=== PATIENT | male | born 1955 | race Asian ===

== ENCOUNTER 2016-08-28 21:31 | Emergency (ER) | payer MEDICARE ==
[~2016-08-28] VITALS: Ht 175.3 cm; Wt 75.0 kg
[2016-08-28 21:52] LABS: GLUCOSE,POINT OF CARE 133 MG/DL (70-110)
[2016-08-28] MEDS ORDERED: CARV6 PO (21:57)
[2016-08-28] MEDS ORDERED: ASPI81 PO (21:57)
[2016-08-28] MEDS ORDERED: METF500T4 PO (21:57)
[2016-08-28] MEDS ORDERED: ATOR40TA28 PO (21:57)
[2016-08-28 22:34] LABS: BASOPHILS % (AUTO) 0.6 % (0.0-2.0); HEMATOCRIT 39.4 % (41-53); HEMOGLOBIN 12.8 g/dL (13.5-17.5); LYMPHOCYTES # (AUTO) 3.8 K/uL (1.0-4.8); LYMPHOCYTES % (AUTO) 32.8 % (22.0-44.0); MEAN CORPUSCULAR HEMOGLOBIN 27.7 pg (26.0-34.0); MEAN CORPUSCULAR HGB CONC 32.4 G/dL (31.0-37.0); MEAN CORPUSCULAR VOLUME 85 fL (80-100); MONOCYTES % (AUTO) 8.4 % (2.0-9.0); NEUTROPHILS # (AUTO) 6.3 K/uL (1.8-7.7); NEUTROPHILS % (AUTO) 54.2 % (40.0-70.0); PLATELET COUNT (AUTO) 180 K/uL (150-450); RED BLOOD CELL COUNT(AUTO) 4.62 MIL/uL (4.50-5.90); RED CELL DISTRIBUTION WIDTH 14.9 % (11.5-14.5); WHITE BLOOD COUNT (AUTO) 11.6 K/uL (4.5-11.0)
[2016-08-28 22:47] LABS: PROTHROMBIN TIME 10.3 SEC (9.4-11.6)
[2016-08-28 22:49] LABS: ANION GAP 6 mmol/L (8-16); CALCIUM, TOTAL 9.1 mg/dL (8.8-10.5); CARBON DIOXIDE 32 mmol/L (22-29); CHLORIDE 100 mmol/L (98-107); CREATININE 1.33 mg/dL (0.60-1.30); GLOMERULAR FILTR. RATE CALC 55 mL/min (>60); POTASSIUM 3.6 mmol/L (3.5-5.1); SODIUM SERUM 138 mmol/L (136-145); UREA NITROGEN, BLOOD 16 mg/dL (7-18)
[2016-08-28 22:58] LABS: B-TYPE NATRIURETIC PEPTIDE < 5 pg/mL (0-100)
[2016-08-28 23:17] LABS: ALANINE AMINOTRANSFERASE 35 U/L (12-78); ALBUMIN 3.1 g/dL (3.4-5.0); ASPARTATE AMINOTRANSFERASE 26 U/L (15-37); BILIRUBIN,TOTAL 0.4 mg/dL (0.1-1.0); CREATINE KINASE MB 0.9 ng/mL (0-5); CREATINE KINASE, TOTAL 95 U/L (39-308)
[2016-08-28] MEDS ORDERED: IOVERSOL 350 MG/ML 100 ML VIAL ONE (23:41)
[2016-08-28] MEDS ORDERED: SODIUM CHLORIDE 0.9% 100 ML ONE (23:41)
[2016-08-29] MEDS ORDERED: LEVOFLOXACIN 500 MG TABLET PO ONE (02:15)
[2016-08-29 04:14] VITALS: BP 107/62
== END 2016-08-29 04:59 | disposition short-term general hospital (02) ==
LOC: EMS 21:34
DX: R04.2 Hemoptysis (principal); R05 Cough; I71.9 Aortic aneurysm of unspecified site, without rupture; E11.9 Type 2 diabetes mellitus without complications; Z79.82 Long term (current) use of aspirin; F17.210 Nicotine dependence, cigarettes, uncomplicated
CPT/HCPCS: 36415; 71010; 71260; 80053; 82550; 82553; 82962; 83880; 84484; 85025; 85610; 85730; 93005; 99285; J7050; Q9967

== ENCOUNTER 2021-12-09 08:30 | Inpatient (IN) | payer MEDICARE ==
[~2021-12-09] VITALS: Ht 172.7 cm; Wt 58.6 kg
[~2021-12-09 08:30] MED LIST: ASPI-1450 PO; ATOR40TA28 PO; CLOP75TA60 PO
[2021-12-09] MEDS ORDERED: SODIUM CHLORIDE 0.9% 1,000 ML IV ONE (09:15)
[2021-12-09 09:30] LABS: BASOPHILS % (AUTO) 0.7 % (0.0-2.0); EOSINOPHILS % (AUTO) 1.7 % (1.0-6.0); HEMATOCRIT 39.6 % (41-53); HEMOGLOBIN 13.1 g/dL (13.5-17.5); LYMPHOCYTES # (AUTO) 2.2 K/uL (1.0-4.8); LYMPHOCYTES % (AUTO) 20.7 % (22.0-44.0); MEAN CORPUSCULAR HEMOGLOBIN 27.7 pg (26.0-34.0); MEAN CORPUSCULAR HGB CONC 33.1 G/dL (31.0-37.0); MEAN CORPUSCULAR VOLUME 84 fL (80-100); MONOCYTES # (AUTO) 0.8 K/uL (0.1-1.0); MONOCYTES % (AUTO) 7.4 % (2.0-9.0); NEUTROPHILS # (AUTO) 7.4 K/uL (1.8-7.7); NEUTROPHILS % (AUTO) 69.5 % (40.0-70.0); PLATELET COUNT (AUTO) 211 K/uL (150-450); RED BLOOD CELL COUNT(AUTO) 4.73 MIL/uL (4.50-5.90); RED CELL DISTRIBUTION WIDTH 14.7 % (11.5-14.5)
[2021-12-09 09:38] LABS: ANION GAP 5 mmol/L (8-16); CALCIUM, TOTAL 9.7 mg/dL (8.8-10.5); CARBON DIOXIDE 32 mmol/L (22-29); CHLORIDE 98 mmol/L (98-107); CREATININE 1.03 mg/dL (0.60-1.30); GLUCOSE,RANDOM 111 mg/dL (70-110); POTASSIUM 3.8 mmol/L (3.5-5.1); SODIUM SERUM 135 mmol/L (136-145); UREA NITROGEN, BLOOD 15 mg/dL (7-18)
[2021-12-09 09:41] LABS: GLUCOMETER DEV NAME(LOC) ERT.5; GLUCOSE,POINT OF CARE 108 MG/DL (70-110)
[2021-12-09 09:41] LABS: GLOMERULAR FILTR. RATE CALC > 60 mL/min (>60)
[2021-12-09 09:44] LABS: ALANINE AMINOTRANSFERASE 35 U/L (12-78); ALBUMIN 3.1 g/dL (3.4-5.0); ALKALINE PHOSPHATASE 101 U/L (46-116); ASPARTATE AMINOTRANSFERASE 34 U/L (15-37); BILIRUBIN,TOTAL 0.7 mg/dL (0.1-1.0); TOTAL PROTEIN, SERUM 8.8 g/dL (6.4-8.2)
[2021-12-09] MEDS ORDERED: IOHEXOL 350 MG/ML 100 ML VIAL ONE (10:45)
[2021-12-09] MEDS ORDERED: SODIUM CHLORIDE 0.9% 100 ML ONE (10:46)
[2021-12-09] MEDS ORDERED: DEXTROSE 50%-WATER 25 GM/50 ML SYRINGE IVP PRN (11:30)
[2021-12-09 12:39] LABS: COVID AG,FIA SOURCE NASAL SWAB
[2021-12-09 13:04] LABS: APPEARANCE,URINE CLEAR (CLEAR); BILIRUBIN,URINE NEGATIVE (NEGATIVE); GLUCOSE, URINE (UA) NEGATIVE (NEGATIVE); KETONES,URINE NEGATIVE (NEGATIVE); LEUKOCYTE ESTERASE ,URINE SMALL (NEGATIVE); NITRATE,URINE NEGATIVE (NEGATIVE); OCCULT BLOOD,URINE SMALL (NEGATIVE); PH,URINE 6.5 (5.0-8.0); PROTEIN,URINE TRACE mg/dL (NEGATIVE); SPECIFIC GRAVITIY, URINE 1.033 (1.003-1.030); UROBILINOGEN,URINE <=1.0 mg/dL (<=1.0)
[2021-12-09 13:11] LABS: AMPHET/METH SCREEN,URINE NEGATIVE (NEGATIVE); BARBITURATE SCREEN, URINE NEGATIVE (NEGATIVE); BENZODIAZEPINES SCREEN,URINE NEGATIVE (NEGATIVE); CANNABINOID SCREEN,URINE NEGATIVE (NEGATIVE); COCAINE SCREEN,URINE NEGATIVE (NEGATIVE); METHADONE SCREEN, URINE NEGATIVE (NEGATIVE); OPIATE SCREEN,URINE NEGATIVE (NEGATIVE); PHENCYCLIDINE SCREEN,URINE NEGATIVE (NEGATIVE)
[2021-12-09] MEDS ORDERED: CLOPIDOGREL BISULFATE 75 MG TABLET PO ONE (13:15)
[2021-12-09] MEDS ORDERED: ASPIRIN 325 MG TABLET PO ONE (13:15)
[2021-12-09 13:34] LABS: BACTERIA,URINE Few /HPF (None Seen); SQUAMOUS EPITHELIAL CELL,UR Few /LPF (None Seen)
[2021-12-09] MEDS: HEPARIN SODIUM,PORCINE 5,000 UNITS/ML VIAL SQ SCH ×2 (16:03→23:21)
[2021-12-09 21:15] VITALS: BP 148/71
[2021-12-09 22:16] LABS: GLUCOMETER DEV NAME(LOC) 6N.1; GLUCOSE,POINT OF CARE 95 MG/DL (70-110)
[2021-12-10 04:21] VITALS: BP 155/73
[2021-12-10 07:16] LABS: GLUCOMETER DEV NAME(LOC) 6N.2B; GLUCOSE,POINT OF CARE 117 MG/DL (70-110)
[2021-12-10 08:11] VITALS: BP 143/63
[2021-12-10] MEDS: FAMOTIDINE 20 MG TABLET PO SCH (08:25)
[2021-12-10] MEDS: ASPIRIN 81 MG CHEWABLE TABLET PO SCH (08:26)
[2021-12-10] MEDS: HEPARIN SODIUM,PORCINE 5,000 UNITS/ML VIAL SQ SCH ×2 (08:26→15:29)
[2021-12-10] MEDS ORDERED: ATORVASTATIN CALCIUM 20 MG TABLET PO SCH (09:00)
[2021-12-10] MEDS: CLOPIDOGREL BISULFATE 75 MG TABLET PO SCH (10:45)
[2021-12-10 11:10] LABS: CHOL/HDL RATIO 4.7 (4.2-7.3)
[2021-12-10 12:15] VITALS: BP 136/69
[2021-12-10 14:01] LABS: GLUCOMETER DEV NAME(LOC) 6N.1; GLUCOSE,POINT OF CARE 97 MG/DL (70-110)
[2021-12-10 16:02] VITALS: BP 135/77
[2021-12-10] MEDS: DEXTROSE 5%-0.45% SODIUM CHL 1,000 ML IV SCH (18:23)
[2021-12-10 19:15] VITALS: BP 150/75
[2021-12-10 20:05] LABS: GLUCOMETER DEV NAME(LOC) 5S.1B; GLUCOSE,POINT OF CARE 78 MG/DL (70-110)
[2021-12-10 22:11] LABS: GLUCOMETER DEV NAME(LOC) 5N.3; GLUCOSE,POINT OF CARE 100 MG/DL (70-110)
[2021-12-11 00:20] VITALS: BP 144/89
[2021-12-11] MEDS: HEPARIN SODIUM,PORCINE 5,000 UNITS/ML VIAL SQ SCH ×3 (00:21→16:14)
[2021-12-11 04:20] VITALS: BP 121/69
[2021-12-11 06:26] LABS: GLUCOMETER DEV NAME(LOC) 5S.2B; GLUCOSE,POINT OF CARE 101 MG/DL (70-110)
[2021-12-11 07:43] VITALS: BP 135/72
[2021-12-11] MEDS: CLOPIDOGREL BISULFATE 75 MG TABLET PO SCH (10:19)
[2021-12-11] MEDS: MULTIVITAMINS WITH MINERALS, THERAPEUTIC TABLET PO SCH (10:19)
[2021-12-11] MEDS: ASPIRIN 81 MG CHEWABLE TABLET PO SCH (10:20)
[2021-12-11] MEDS: FAMOTIDINE 20 MG TABLET PO SCH (10:20)
[2021-12-11] MEDS: ATORVASTATIN CALCIUM 40 MG TABLET PO SCH (10:20)
[2021-12-11 11:54] VITALS: BP 160/77
[2021-12-11] MEDS: DEXTROSE 5%-0.45% SODIUM CHL 1,000 ML IV SCH (12:15)
[2021-12-11 16:04] VITALS: BP 142/76
[2021-12-11 19:17] VITALS: BP 154/74
[2021-12-11 20:56] LABS: GLUCOMETER DEV NAME(LOC) 5N.1C; GLUCOSE,POINT OF CARE 119 MG/DL (70-110)
[2021-12-11 20:56] LABS: GLUCOMETER DEV NAME(LOC) 5N.1C; GLUCOSE,POINT OF CARE 135 MG/DL (70-110)
[2021-12-12] VITALS (7 sets, daily range): BP systolic 109–154; BP diastolic 64–84
[2021-12-12] MEDS: HEPARIN SODIUM,PORCINE 5,000 UNITS/ML VIAL SQ SCH ×4 (00:08→23:42)
[2021-12-12 05:56] LABS: GLUCOMETER DEV NAME(LOC) 5S.1B; GLUCOSE,POINT OF CARE 99 MG/DL (70-110)
[2021-12-12] MEDS: ATORVASTATIN CALCIUM 40 MG TABLET PO SCH (08:51)
[2021-12-12] MEDS: MULTIVITAMINS WITH MINERALS, THERAPEUTIC TABLET PO SCH (08:51)
[2021-12-12] MEDS: FAMOTIDINE 20 MG TABLET PO SCH (08:52)
[2021-12-12] MEDS: CLOPIDOGREL BISULFATE 75 MG TABLET PO SCH (08:52)
[2021-12-12] MEDS: ASPIRIN 81 MG CHEWABLE TABLET PO SCH (08:52)
[2021-12-12] MEDS: DEXTROSE 5%-0.45% SODIUM CHL 1,000 ML IV SCH (08:54)
[2021-12-12 15:06] LABS: GLUCOMETER DEV NAME(LOC) 5S.2B; GLUCOSE,POINT OF CARE 136 MG/DL (70-110)
[2021-12-12 17:52] LABS: GLUCOMETER DEV NAME(LOC) 5N.1C; GLUCOSE,POINT OF CARE 104 MG/DL (70-110)
[2021-12-13 00:24] VITALS: BP 136/70
[2021-12-13] MEDS: DEXTROSE 5%-0.45% SODIUM CHL 1,000 ML IV SCH (04:15)
[2021-12-13 05:27] VITALS: BP 152/75
[2021-12-13 06:26] LABS: GLUCOMETER DEV NAME(LOC) 5N.1C; GLUCOSE,POINT OF CARE 107 MG/DL (70-110)
[2021-12-13 06:50] LABS: GLUCOMETER DEV NAME(LOC) 5N.3; GLUCOSE,POINT OF CARE 101 MG/DL (70-110)
[2021-12-13 07:35] VITALS: BP 121/68
[2021-12-13 07:42] LABS: BASOPHILS % (AUTO) 0.5 % (0.0-2.0); EOSINOPHILS % (AUTO) 1.4 % (1.0-6.0); HEMATOCRIT 40.5 % (41-53); HEMOGLOBIN 13.3 g/dL (13.5-17.5); LYMPHOCYTES # (AUTO) 1.6 K/uL (1.0-4.8); LYMPHOCYTES % (AUTO) 16.5 % (22.0-44.0); MEAN CORPUSCULAR HEMOGLOBIN 27.2 pg (26.0-34.0); MEAN CORPUSCULAR HGB CONC 32.8 G/dL (31.0-37.0); MEAN CORPUSCULAR VOLUME 83 fL (80-100); MONOCYTES # (AUTO) 0.7 K/uL (0.1-1.0); MONOCYTES % (AUTO) 6.9 % (2.0-9.0); NEUTROPHILS # (AUTO) 7.4 K/uL (1.8-7.7); NEUTROPHILS % (AUTO) 74.7 % (40.0-70.0); PLATELET COUNT (AUTO) 212 K/uL (150-450); RED BLOOD CELL COUNT(AUTO) 4.87 MIL/uL (4.50-5.90); RED CELL DISTRIBUTION WIDTH 14.5 % (11.5-14.5)
[2021-12-13 07:57] LABS: ANION GAP 5 mmol/L (8-16); CALCIUM, TOTAL 8.8 mg/dL (8.8-10.5); CARBON DIOXIDE 30 mmol/L (22-29); CHLORIDE 98 mmol/L (98-107); CREATININE 0.99 mg/dL (0.60-1.30); GLUCOSE,RANDOM 102 mg/dL (70-110); POTASSIUM 3.3 mmol/L (3.5-5.1); SODIUM SERUM 133 mmol/L (136-145); UREA NITROGEN, BLOOD 14 mg/dL (7-18)
[2021-12-13] MEDS: MULTIVITAMINS WITH MINERALS, THERAPEUTIC TABLET PO SCH (08:01)
[2021-12-13] MEDS: ASPIRIN 81 MG CHEWABLE TABLET PO SCH (08:01)
[2021-12-13] MEDS: CLOPIDOGREL BISULFATE 75 MG TABLET PO SCH (08:01)
[2021-12-13] MEDS: FAMOTIDINE 20 MG TABLET PO SCH (08:01)
[2021-12-13] MEDS: ATORVASTATIN CALCIUM 40 MG TABLET PO SCH (08:01)
[2021-12-13 08:07] LABS: GLOMERULAR FILTR. RATE CALC > 60 mL/min (>60)
[2021-12-13] MEDS: HEPARIN SODIUM,PORCINE 5,000 UNITS/ML VIAL SQ SCH ×3 (08:10→23:40)
[2021-12-13 11:15] VITALS: BP 148/88
[2021-12-13] MEDS: INSULIN LISPRO 100 UNITS/ML SQ PRN ×2 (11:27→17:13)
[2021-12-13] MEDS ORDERED: POTASSIUM CHLORIDE 20 MEQ ER TABLET PO PRN (13:45)
[2021-12-13] MEDS ORDERED: POTASSIUM CHL 10 MEQ/WATER 50 ML IV PRN (13:45)
[2021-12-13 15:26] LABS: COVID AG,FIA SOURCE NASOPHARYNGEAL
[2021-12-13 16:10] VITALS: BP 121/74
[2021-12-13 17:27] LABS: GLUCOMETER DEV NAME(LOC) 5S.2B; GLUCOSE,POINT OF CARE 118 MG/DL (70-110)
[2021-12-13 18:51] LABS: GLUCOMETER DEV NAME(LOC) 5S.1B; GLUCOSE,POINT OF CARE 92 MG/DL (70-110)
[2021-12-13 18:51] LABS: GLUCOMETER DEV NAME(LOC) 5S.1B; GLUCOSE,POINT OF CARE 110 MG/DL (70-110)
[2021-12-13] MEDS: NYSTATIN 500,000 UNITS/5 ML SUSPENSION UDCUP PO SCH (19:52)
[2021-12-13 20:30] VITALS: BP 106/52
[2021-12-14 00:35] VITALS: BP 110/65
[2021-12-14 05:34] VITALS: BP 115/66
[2021-12-14 06:46] LABS: GLUCOMETER DEV NAME(LOC) 5S.1B; GLUCOSE,POINT OF CARE 100 MG/DL (70-110)
[2021-12-14 08:00] VITALS: BP 131/84
[2021-12-14] MEDS: HEPARIN SODIUM,PORCINE 5,000 UNITS/ML VIAL SQ SCH ×3 (09:09→23:50)
[2021-12-14] MEDS: MULTIVITAMINS WITH MINERALS, THERAPEUTIC TABLET PO SCH (09:10)
[2021-12-14] MEDS: CLOPIDOGREL BISULFATE 75 MG TABLET PO SCH (09:10)
[2021-12-14] MEDS: ATORVASTATIN CALCIUM 40 MG TABLET PO SCH (09:10)
[2021-12-14] MEDS: NYSTATIN 500,000 UNITS/5 ML SUSPENSION UDCUP PO SCH ×2 (09:10→20:17)
[2021-12-14] MEDS: FAMOTIDINE 20 MG TABLET PO SCH (09:10)
[2021-12-14] MEDS: ASPIRIN 81 MG CHEWABLE TABLET PO SCH (09:10)
[2021-12-14] MEDS: LISINOPRIL 5 MG TABLET PO SCH (09:10)
[2021-12-14 11:26] LABS: GLUCOMETER DEV NAME(LOC) 5N.1C; GLUCOSE,POINT OF CARE 106 MG/DL (70-110)
[2021-12-14 12:00] VITALS: BP 136/70
[2021-12-14 16:00] VITALS: BP 127/65
[2021-12-14 18:07] LABS: COVID AG,FIA SOURCE NASAL SWAB
[2021-12-14] MEDS: INSULIN LISPRO 100 UNITS/ML SQ PRN (20:17)
[2021-12-14] MEDS: ACETAMINOPHEN 325 MG TABLET PO PRN (20:20)
[2021-12-14 20:40] VITALS: BP 144/84
[2021-12-14 21:12] LABS: GLUCOMETER DEV NAME(LOC) 5N.1C; GLUCOSE,POINT OF CARE 108 MG/DL (70-110)
[2021-12-14 21:12] LABS: GLUCOMETER DEV NAME(LOC) 5N.3; GLUCOSE,POINT OF CARE 120 MG/DL (70-110)
[2021-12-14 21:12] LABS: GLUCOMETER DEV NAME(LOC) 5N.3; GLUCOSE,POINT OF CARE 150 MG/DL (70-110)
[2021-12-15 00:44] VITALS: BP 130/64
[2021-12-15 04:32] VITALS: BP 126/57
[2021-12-15 07:53] VITALS: BP 130/64
[2021-12-15] MEDS: HEPARIN SODIUM,PORCINE 5,000 UNITS/ML VIAL SQ SCH ×2 (08:00→16:00)
[2021-12-15] MEDS: MULTIVITAMINS WITH MINERALS, THERAPEUTIC TABLET PO SCH (09:00)
[2021-12-15] MEDS: LISINOPRIL 5 MG TABLET PO SCH (09:00)
[2021-12-15] MEDS: NYSTATIN 500,000 UNITS/5 ML SUSPENSION UDCUP PO SCH ×2 (09:00→20:53)
[2021-12-15] MEDS: FAMOTIDINE 20 MG TABLET PO SCH (09:00)
[2021-12-15] MEDS: ASPIRIN 81 MG CHEWABLE TABLET PO SCH (09:00)
[2021-12-15] MEDS: ATORVASTATIN CALCIUM 40 MG TABLET PO SCH (09:00)
[2021-12-15] MEDS: CLOPIDOGREL BISULFATE 75 MG TABLET PO SCH (09:00)
[2021-12-15 11:26] VITALS: BP 132/62
[2021-12-15] MEDS ORDERED: LISI-892 PO (13:21)
[2021-12-15] MEDS ORDERED: NYST100033 PO (13:22)
[2021-12-15 13:51] LABS: GLUCOMETER DEV NAME(LOC) 5N.1C; GLUCOSE,POINT OF CARE 117 MG/DL (70-110)
[2021-12-15 13:51] LABS: GLUCOMETER DEV NAME(LOC) 5S.2B; GLUCOSE,POINT OF CARE 118 MG/DL (70-110)
[2021-12-15 18:07] LABS: GLUCOMETER DEV NAME(LOC) 5S.2B; GLUCOSE,POINT OF CARE 98 MG/DL (70-110)
[2021-12-15 19:32] VITALS: BP 136/64
[2021-12-15 23:37] VITALS: BP 145/65
[2021-12-16] MEDS: HEPARIN SODIUM,PORCINE 5,000 UNITS/ML VIAL SQ SCH ×3 (00:55→16:41)
[2021-12-16 03:47] VITALS: BP 154/62
[2021-12-16 06:36] LABS: GLUCOMETER DEV NAME(LOC) 5S.2B; GLUCOSE,POINT OF CARE 104 MG/DL (70-110)
[2021-12-16 08:57] VITALS: BP 144/76
[2021-12-16] MEDS: FAMOTIDINE 20 MG TABLET PO SCH (09:00)
[2021-12-16] MEDS: CLOPIDOGREL BISULFATE 75 MG TABLET PO SCH (09:00)
[2021-12-16] MEDS: LISINOPRIL 5 MG TABLET PO SCH (09:00)
[2021-12-16] MEDS: NYSTATIN 500,000 UNITS/5 ML SUSPENSION UDCUP PO SCH ×2 (09:00→20:25)
[2021-12-16] MEDS: MULTIVITAMINS WITH MINERALS, THERAPEUTIC TABLET PO SCH (09:00)
[2021-12-16] MEDS: ATORVASTATIN CALCIUM 40 MG TABLET PO SCH (09:00)
[2021-12-16] MEDS: ASPIRIN 81 MG CHEWABLE TABLET PO SCH (09:00)
[2021-12-16 11:56] LABS: GLUCOMETER DEV NAME(LOC) 5N.1C; GLUCOSE,POINT OF CARE 110 MG/DL (70-110)
[2021-12-16 12:01] VITALS: BP 114/63
[2021-12-16 16:01] VITALS: BP 146/70
[2021-12-16 19:28] VITALS: BP 153/64
[2021-12-16 20:51] LABS: GLUCOMETER DEV NAME(LOC) 5S.1B; GLUCOSE,POINT OF CARE 91 MG/DL (70-110)
[2021-12-16 20:51] LABS: GLUCOMETER DEV NAME(LOC) 5S.1B; GLUCOSE,POINT OF CARE 101 MG/DL (70-110)
[2021-12-16 23:34] VITALS: BP 122/68
[2021-12-17] MEDS: HEPARIN SODIUM,PORCINE 5,000 UNITS/ML VIAL SQ SCH ×3 (00:41→16:00)
[2021-12-17 05:23] VITALS: BP 134/75
[2021-12-17 07:22] VITALS: BP 132/66
[2021-12-17] MEDS: ASPIRIN 81 MG CHEWABLE TABLET PO SCH (07:53)
[2021-12-17] MEDS: ATORVASTATIN CALCIUM 40 MG TABLET PO SCH (07:53)
[2021-12-17] MEDS: MULTIVITAMINS WITH MINERALS, THERAPEUTIC TABLET PO SCH (07:54)
[2021-12-17] MEDS: LISINOPRIL 5 MG TABLET PO SCH (07:54)
[2021-12-17] MEDS: FAMOTIDINE 20 MG TABLET PO SCH (07:54)
[2021-12-17] MEDS: CLOPIDOGREL BISULFATE 75 MG TABLET PO SCH (07:55)
[2021-12-17] MEDS: NYSTATIN 500,000 UNITS/5 ML SUSPENSION UDCUP PO SCH ×2 (08:02→20:27)
[2021-12-17 11:21] VITALS: BP 152/68
[2021-12-17 15:17] VITALS: BP 147/76
[2021-12-17 20:31] VITALS: BP 143/91
[2021-12-17 21:02] LABS: GLUCOMETER DEV NAME(LOC) 5N.3; GLUCOSE,POINT OF CARE 86 MG/DL (70-110)
[2021-12-17 21:02] LABS: GLUCOMETER DEV NAME(LOC) 5N.1C; GLUCOSE,POINT OF CARE 97 MG/DL (70-110)
[2021-12-18] MEDS: HEPARIN SODIUM,PORCINE 5,000 UNITS/ML VIAL SQ SCH ×4 (00:10→23:31)
[2021-12-18 01:12] VITALS: BP 155/73
[2021-12-18 04:40] VITALS: BP 152/80
[2021-12-18 06:11] LABS: GLUCOMETER DEV NAME(LOC) 5S.1B; GLUCOSE,POINT OF CARE 94 MG/DL (70-110)
[2021-12-18 06:12] LABS: GLUCOMETER DEV NAME(LOC) 5S.1B; GLUCOSE,POINT OF CARE 106 MG/DL (70-110)
[2021-12-18 06:12] LABS: GLUCOMETER DEV NAME(LOC) 5S.1B; GLUCOSE,POINT OF CARE 119 MG/DL (70-110)
[2021-12-18 07:00] LABS: BASOPHILS % (AUTO) 0.5 % (0.0-2.0); HEMOGLOBIN 14.1 g/dL (13.5-17.5); LYMPHOCYTES # (AUTO) 2.2 K/uL (1.0-4.8); LYMPHOCYTES % (AUTO) 19.7 % (22.0-44.0); MEAN CORPUSCULAR HEMOGLOBIN 27.2 pg (26.0-34.0); MEAN CORPUSCULAR HGB CONC 32.1 G/dL (31.0-37.0); MEAN CORPUSCULAR VOLUME 85 fL (80-100); MONOCYTES # (AUTO) 0.8 K/uL (0.1-1.0); MONOCYTES % (AUTO) 7.2 % (2.0-9.0); NEUTROPHILS # (AUTO) 7.9 K/uL (1.8-7.7); NEUTROPHILS % (AUTO) 71.6 % (40.0-70.0); PLATELET COUNT (AUTO) 259 K/uL (150-450); RED CELL DISTRIBUTION WIDTH 14.6 % (11.5-14.5)
[2021-12-18 07:12] LABS: ANION GAP 10 mmol/L (8-16); CALCIUM, TOTAL 9.8 mg/dL (8.8-10.5); CARBON DIOXIDE 29 mmol/L (22-29); CHLORIDE 101 mmol/L (98-107); CREATININE 1.14 mg/dL (0.60-1.30); GLUCOSE,RANDOM 106 mg/dL (70-110); PHOSPHORUS 4.3 mg/dL (2.5-4.9); POTASSIUM 3.6 mmol/L (3.5-5.1); SODIUM SERUM 140 mmol/L (136-145); UREA NITROGEN, BLOOD 41 mg/dL (7-18)
[2021-12-18 07:13] LABS: GLOMERULAR FILTR. RATE CALC > 60 mL/min (>60)
[2021-12-18 07:41] VITALS: BP 150/65
[2021-12-18] MEDS: MULTIVITAMINS WITH MINERALS, THERAPEUTIC TABLET PO SCH (08:31)
[2021-12-18] MEDS: LISINOPRIL 5 MG TABLET PO SCH (08:31)
[2021-12-18] MEDS: ASPIRIN 81 MG CHEWABLE TABLET PO SCH (08:31)
[2021-12-18] MEDS: ATORVASTATIN CALCIUM 40 MG TABLET PO SCH (08:32)
[2021-12-18] MEDS: CLOPIDOGREL BISULFATE 75 MG TABLET PO SCH (08:32)
[2021-12-18] MEDS: NYSTATIN 500,000 UNITS/5 ML SUSPENSION UDCUP PO SCH ×2 (08:33→20:09)
[2021-12-18] MEDS: FAMOTIDINE 20 MG TABLET PO SCH (08:33)
[2021-12-18 11:43] VITALS: BP 135/66
[2021-12-18 15:34] VITALS: BP 121/75
[2021-12-18 17:22] LABS: GLUCOMETER DEV NAME(LOC) 5S.1B; GLUCOSE,POINT OF CARE 107 MG/DL (70-110)
[2021-12-18 17:22] LABS: GLUCOMETER DEV NAME(LOC) 5N.1C; GLUCOSE,POINT OF CARE 107 MG/DL (70-110)
[2021-12-18 21:07] VITALS: BP 146/73
[2021-12-19 00:11] LABS: GLUCOMETER DEV NAME(LOC) 6N.2B; GLUCOSE,POINT OF CARE 130 MG/DL (70-110)
[2021-12-19 04:54] VITALS: BP 139/76
[2021-12-19] MEDS: INSULIN LISPRO 100 UNITS/ML SQ PRN ×4 (06:28→20:26)
[2021-12-19 07:01] LABS: GLUCOMETER DEV NAME(LOC) 6N.1; GLUCOSE,POINT OF CARE 152 MG/DL (70-110)
[2021-12-19] MEDS: HEPARIN SODIUM,PORCINE 5,000 UNITS/ML VIAL SQ SCH ×3 (08:32→23:23)
[2021-12-19] MEDS: ATORVASTATIN CALCIUM 40 MG TABLET PO SCH (08:39)
[2021-12-19] MEDS: NYSTATIN 500,000 UNITS/5 ML SUSPENSION UDCUP PO SCH ×2 (08:39→19:58)
[2021-12-19] MEDS: MULTIVITAMINS WITH MINERALS, THERAPEUTIC TABLET PO SCH (08:39)
[2021-12-19] MEDS: LISINOPRIL 5 MG TABLET PO SCH (08:39)
[2021-12-19] MEDS: FAMOTIDINE 20 MG TABLET PO SCH (08:39)
[2021-12-19] MEDS: ASPIRIN 81 MG CHEWABLE TABLET PO SCH (08:40)
[2021-12-19 08:49] VITALS: BP 163/74
[2021-12-19] MEDS: CLOPIDOGREL BISULFATE 75 MG TABLET PO SCH (09:00)
[2021-12-19 10:57] VITALS: BP 153/78
[2021-12-19 11:21] LABS: GLUCOMETER DEV NAME(LOC) 6N.1; GLUCOSE,POINT OF CARE 159 MG/DL (70-110)
[2021-12-19] MEDS: MAGNESIUM HYDROXIDE SUSPENSION 30 ML UDCUP PO PRN ×2 (11:36→11:38)
[2021-12-19 13:45] VITALS: BP 151/76
[2021-12-19 15:47] VITALS: BP 150/74
[2021-12-19 18:26] LABS: GLUCOMETER DEV NAME(LOC) 6N.2B; GLUCOSE,POINT OF CARE 154 MG/DL (70-110)
[2021-12-19 19:46] VITALS: BP 129/65
[2021-12-19] MEDS ORDERED: DEXTROSE 5%-0.45% SODIUM CHL 1,000 ML IV ONE (21:15)
[2021-12-19 22:46] LABS: GLUCOMETER DEV NAME(LOC) 6N.1; GLUCOSE,POINT OF CARE 164 MG/DL (70-110)
[2021-12-20 04:45] VITALS: BP 146/66
[2021-12-20 07:11] LABS: GLUCOMETER DEV NAME(LOC) 6N.1; GLUCOSE,POINT OF CARE 152 MG/DL (70-110)
[2021-12-20 08:00] VITALS: BP 139/66
[2021-12-20] MEDS: MULTIVITAMINS WITH MINERALS, THERAPEUTIC TABLET PO SCH (09:41)
[2021-12-20] MEDS: HEPARIN SODIUM,PORCINE 5,000 UNITS/ML VIAL SQ SCH ×3 (09:41→23:24)
[2021-12-20] MEDS: FAMOTIDINE 20 MG TABLET PO SCH (09:41)
[2021-12-20] MEDS: ASPIRIN 81 MG CHEWABLE TABLET PO SCH (09:42)
[2021-12-20] MEDS: ATORVASTATIN CALCIUM 40 MG TABLET PO SCH (09:43)
[2021-12-20] MEDS: NYSTATIN 500,000 UNITS/5 ML SUSPENSION UDCUP PO SCH ×2 (09:43→20:11)
[2021-12-20] MEDS: CLOPIDOGREL BISULFATE 75 MG TABLET PO SCH (09:43)
[2021-12-20] MEDS: LISINOPRIL 5 MG TABLET PO SCH (09:43)
[2021-12-20] MEDS ORDERED: SODIUM CHLORIDE 0.45% 1,000 ML IV ONE ×2 (11:58→12:01)
[2021-12-20] MEDS ORDERED: CeFAZolin 1 GM/DEXTROSE 50 ML IV ONE (12:30)
[2021-12-20 12:57] LABS: GLUCOMETER DEV NAME(LOC) 6N.2B; GLUCOSE,POINT OF CARE 128 MG/DL (70-110)
[2021-12-20] MEDS ORDERED: SODIUM CHLORIDE 0.9% 500 ML IV ONE (13:52)
[2021-12-20 16:00] VITALS: BP 140/70
[2021-12-20 19:25] VITALS: BP 143/64
[2021-12-20 19:46] LABS: GLUCOMETER DEV NAME(LOC) 6N.2B; GLUCOSE,POINT OF CARE 111 MG/DL (70-110)
[2021-12-20 20:10] LABS: GLUCOMETER DEV NAME(LOC) 6N.2B; GLUCOSE,POINT OF CARE 138 MG/DL (70-110)
[2021-12-21 03:59] VITALS: BP 145/67
[2021-12-21] MEDS ORDERED: LIDOCAINE/PF 2% 5 ML VIAL IM ONE (06:32)
[2021-12-21] MEDS ORDERED: PROPOFOL 1% 20 ML VIAL IVP ONE (06:32)
[2021-12-21 07:28] VITALS: BP 137/79
[2021-12-21 08:11] LABS: GLUCOMETER DEV NAME(LOC) 6N.2B; GLUCOSE,POINT OF CARE 138 MG/DL (70-110)
[2021-12-21] MEDS: CLOPIDOGREL BISULFATE 75 MG TABLET PO SCH (08:54)
[2021-12-21] MEDS: ASPIRIN 81 MG CHEWABLE TABLET PO SCH (08:54)
[2021-12-21] MEDS: NYSTATIN 500,000 UNITS/5 ML SUSPENSION UDCUP PO SCH ×3 (08:54→21:55)
[2021-12-21] MEDS: ATORVASTATIN CALCIUM 40 MG TABLET PO SCH (08:54)
[2021-12-21] MEDS: LISINOPRIL 5 MG TABLET PO SCH (08:54)
[2021-12-21] MEDS: FAMOTIDINE 20 MG TABLET PO SCH (08:54)
[2021-12-21] MEDS: MULTIVITAMINS WITH MINERALS, THERAPEUTIC TABLET PO SCH (08:54)
[2021-12-21] MEDS: POVIDONE-IODINE 10% 120 ML SOLUTION TP SCH (08:57)
[2021-12-21] MEDS: HEPARIN SODIUM,PORCINE 5,000 UNITS/ML VIAL SQ SCH ×2 (09:01→15:41)
[2021-12-21] MEDS: HYDROGEN PEROXIDE 473 ML SOLUTION TP SCH (09:02)
[2021-12-21 12:16] LABS: GLUCOMETER DEV NAME(LOC) 6N.2B; GLUCOSE,POINT OF CARE 141 MG/DL (70-110)
[2021-12-21] MEDS: SCOPOLAMINE HYDROBROMIDE 1 MG/72 HOUR PATCH TD SCH (14:37)
[2021-12-21 16:00] VITALS: BP 115/65
[2021-12-21 19:21] LABS: GLUCOMETER DEV NAME(LOC) 6N.1; GLUCOSE,POINT OF CARE 121 MG/DL (70-110)
[2021-12-21 20:13] VITALS: BP 135/75
[2021-12-21 22:31] LABS: GLUCOMETER DEV NAME(LOC) 6N.2B; GLUCOSE,POINT OF CARE 140 MG/DL (70-110)
[2021-12-22] MEDS: HEPARIN SODIUM,PORCINE 5,000 UNITS/ML VIAL SQ SCH ×3 (00:20→15:59)
[2021-12-22 04:24] VITALS: BP 135/62
[2021-12-22 06:41] LABS: GLUCOMETER DEV NAME(LOC) 6N.2B; GLUCOSE,POINT OF CARE 103 MG/DL (70-110)
[2021-12-22 07:25] VITALS: BP 142/76
[2021-12-22] MEDS: LISINOPRIL 5 MG TABLET PO SCH (09:08)
[2021-12-22] MEDS: ATORVASTATIN CALCIUM 40 MG TABLET PO SCH (09:08)
[2021-12-22] MEDS: FAMOTIDINE 20 MG TABLET PO SCH (09:08)
[2021-12-22] MEDS: ASPIRIN 81 MG CHEWABLE TABLET PO SCH (09:08)
[2021-12-22] MEDS: MULTIVITAMINS WITH MINERALS, THERAPEUTIC TABLET PO SCH (09:08)
[2021-12-22] MEDS: CLOPIDOGREL BISULFATE 75 MG TABLET PO SCH (09:08)
[2021-12-22] MEDS: HYDROGEN PEROXIDE 473 ML SOLUTION TP SCH (09:09)
[2021-12-22] MEDS: NYSTATIN 500,000 UNITS/5 ML SUSPENSION UDCUP PO SCH ×2 (09:09→20:12)
[2021-12-22] MEDS: INSULIN LISPRO 100 UNITS/ML SQ PRN ×2 (12:22→18:05)
[2021-12-22 13:46] LABS: GLUCOMETER DEV NAME(LOC) 6N.2B; GLUCOSE,POINT OF CARE 154 MG/DL (70-110)
[2021-12-22 15:25] VITALS: BP 117/48
[2021-12-22] MEDS: POVIDONE-IODINE 10% 120 ML SOLUTION TP SCH (16:56)
[2021-12-22 18:41] LABS: GLUCOMETER DEV NAME(LOC) 6N.2B; GLUCOSE,POINT OF CARE 159 MG/DL (70-110)
[2021-12-22 19:49] VITALS: BP 129/67
[2021-12-22] MEDS: ACETAMINOPHEN 325 MG TABLET PO PRN (20:13)
[2021-12-22 23:11] VITALS: BP 143/69
[2021-12-23] MEDS: HEPARIN SODIUM,PORCINE 5,000 UNITS/ML VIAL SQ SCH ×4 (00:13→23:43)
[2021-12-23 02:41] LABS: GLUCOMETER DEV NAME(LOC) 6N.2B; GLUCOSE,POINT OF CARE 108 MG/DL (70-110)
[2021-12-23 04:01] VITALS: BP 132/70
[2021-12-23 07:06] LABS: GLUCOMETER DEV NAME(LOC) 6N.1; GLUCOSE,POINT OF CARE 126 MG/DL (70-110)
[2021-12-23 07:15] VITALS: BP 107/71
[2021-12-23] MEDS: ASPIRIN 81 MG CHEWABLE TABLET PO SCH (08:25)
[2021-12-23] MEDS: CLOPIDOGREL BISULFATE 75 MG TABLET PO SCH (08:25)
[2021-12-23] MEDS: MULTIVITAMINS WITH MINERALS, THERAPEUTIC TABLET PO SCH (08:26)
[2021-12-23] MEDS: FAMOTIDINE 20 MG TABLET PO SCH (08:26)
[2021-12-23] MEDS: LISINOPRIL 5 MG TABLET PO SCH (08:26)
[2021-12-23] MEDS: ATORVASTATIN CALCIUM 40 MG TABLET PO SCH (08:26)
[2021-12-23] MEDS: NYSTATIN 500,000 UNITS/5 ML SUSPENSION UDCUP PO SCH ×2 (08:26→20:14)
[2021-12-23] MEDS: HYDROGEN PEROXIDE 473 ML SOLUTION TP SCH (08:27)
[2021-12-23] MEDS: POVIDONE-IODINE 10% 120 ML SOLUTION TP SCH (08:27)
[2021-12-23] MEDS: INSULIN LISPRO 100 UNITS/ML SQ PRN ×2 (11:49→20:25)
[2021-12-23 12:27] LABS: GLUCOMETER DEV NAME(LOC) 6N.2B; GLUCOSE,POINT OF CARE 142 MG/DL (70-110)
[2021-12-23 15:29] VITALS: BP 110/63
[2021-12-23 18:56] LABS: GLUCOMETER DEV NAME(LOC) 6N.2B; GLUCOSE,POINT OF CARE 123 MG/DL (70-110)
[2021-12-23 19:35] VITALS: BP 128/47
[2021-12-23 20:42] LABS: GLUCOMETER DEV NAME(LOC) 6N.2B; GLUCOSE,POINT OF CARE 144 MG/DL (70-110)
[2021-12-24 05:00] VITALS: BP 115/64
[2021-12-24 07:49] VITALS: BP 139/74
[2021-12-24] MEDS: NYSTATIN 500,000 UNITS/5 ML SUSPENSION UDCUP PO SCH ×2 (08:10→21:00)
[2021-12-24] MEDS: CLOPIDOGREL BISULFATE 75 MG TABLET PO SCH (08:11)
[2021-12-24] MEDS: MULTIVITAMINS WITH MINERALS, THERAPEUTIC TABLET PO SCH (08:11)
[2021-12-24] MEDS: SCOPOLAMINE HYDROBROMIDE 1 MG/72 HOUR PATCH TD SCH (08:11)
[2021-12-24] MEDS: ATORVASTATIN CALCIUM 40 MG TABLET PO SCH (08:11)
[2021-12-24] MEDS: HEPARIN SODIUM,PORCINE 5,000 UNITS/ML VIAL SQ SCH ×3 (08:11→23:27)
[2021-12-24] MEDS: FAMOTIDINE 20 MG TABLET PO SCH (08:12)
[2021-12-24] MEDS: ASPIRIN 81 MG CHEWABLE TABLET PO SCH (08:12)
[2021-12-24] MEDS: LISINOPRIL 5 MG TABLET PO SCH (08:12)
[2021-12-24 08:21] LABS: GLUCOMETER DEV NAME(LOC) 6N.1; GLUCOSE,POINT OF CARE 140 MG/DL (70-110)
[2021-12-24] MEDS: POVIDONE-IODINE 10% 120 ML SOLUTION TP SCH (09:39)
[2021-12-24] MEDS: HYDROGEN PEROXIDE 473 ML SOLUTION TP SCH (09:39)
[2021-12-24 12:47] LABS: GLUCOMETER DEV NAME(LOC) 6N.1; GLUCOSE,POINT OF CARE 144 MG/DL (70-110)
[2021-12-24 16:00] VITALS: BP 117/66
[2021-12-24] MEDS: INSULIN LISPRO 100 UNITS/ML SQ PRN (18:03)
[2021-12-24 20:06] LABS: GLUCOMETER DEV NAME(LOC) 6N.2B; GLUCOSE,POINT OF CARE 171 MG/DL (70-110)
[2021-12-24 20:15] VITALS: BP 122/88
[2021-12-24 21:21] LABS: GLUCOMETER DEV NAME(LOC) 6N.1; GLUCOSE,POINT OF CARE 114 MG/DL (70-110)
[2021-12-25 05:00] VITALS: BP 130/69
[2021-12-25] MEDS: INSULIN LISPRO 100 UNITS/ML SQ PRN ×2 (06:15→18:37)
[2021-12-25 07:41] LABS: GLUCOMETER DEV NAME(LOC) 6N.2B; GLUCOSE,POINT OF CARE 152 MG/DL (70-110)
[2021-12-25 08:43] VITALS: BP 126/76
[2021-12-25] MEDS: ASPIRIN 81 MG CHEWABLE TABLET PO SCH (08:57)
[2021-12-25] MEDS: HEPARIN SODIUM,PORCINE 5,000 UNITS/ML VIAL SQ SCH ×3 (08:57→23:46)
[2021-12-25] MEDS: CLOPIDOGREL BISULFATE 75 MG TABLET PO SCH (08:59)
[2021-12-25] MEDS: MULTIVITAMINS WITH MINERALS, THERAPEUTIC TABLET PO SCH (08:59)
[2021-12-25] MEDS: ATORVASTATIN CALCIUM 40 MG TABLET PO SCH (08:59)
[2021-12-25] MEDS: FAMOTIDINE 20 MG TABLET PO SCH (08:59)
[2021-12-25] MEDS: NYSTATIN 500,000 UNITS/5 ML SUSPENSION UDCUP PO SCH ×2 (08:59→20:28)
[2021-12-25] MEDS: HYDROGEN PEROXIDE 473 ML SOLUTION TP SCH (09:00)
[2021-12-25] MEDS: LISINOPRIL 5 MG TABLET PO SCH (09:00)
[2021-12-25] MEDS: POVIDONE-IODINE 10% 120 ML SOLUTION TP SCH (09:00)
[2021-12-25 12:41] LABS: GLUCOMETER DEV NAME(LOC) 6N.2B; GLUCOSE,POINT OF CARE 185 MG/DL (70-110)
[2021-12-25 16:04] VITALS: BP 117/65
[2021-12-25 18:46] LABS: GLUCOMETER DEV NAME(LOC) 6N.1; GLUCOSE,POINT OF CARE 154 MG/DL (70-110)
[2021-12-25 20:10] VITALS: BP 122/70
[2021-12-25 21:06] LABS: GLUCOMETER DEV NAME(LOC) 6N.1; GLUCOSE,POINT OF CARE 136 MG/DL (70-110)
[2021-12-26 04:30] VITALS: BP 142/69
[2021-12-26] MEDS: INSULIN LISPRO 100 UNITS/ML SQ PRN ×2 (05:58→11:43)
[2021-12-26 06:17] LABS: GLUCOMETER DEV NAME(LOC) 6N.1; GLUCOSE,POINT OF CARE 163 MG/DL (70-110)
[2021-12-26 08:00] VITALS: BP 121/62
[2021-12-26] MEDS: NYSTATIN 500,000 UNITS/5 ML SUSPENSION UDCUP PO SCH ×2 (08:32→20:11)
[2021-12-26] MEDS: ASPIRIN 81 MG CHEWABLE TABLET PO SCH (08:33)
[2021-12-26] MEDS: LISINOPRIL 5 MG TABLET PO SCH (08:33)
[2021-12-26] MEDS: FAMOTIDINE 20 MG TABLET PO SCH (08:33)
[2021-12-26] MEDS: ATORVASTATIN CALCIUM 40 MG TABLET PO SCH (08:34)
[2021-12-26] MEDS: MULTIVITAMINS WITH MINERALS, THERAPEUTIC TABLET PO SCH (08:34)
[2021-12-26] MEDS: CLOPIDOGREL BISULFATE 75 MG TABLET PO SCH (08:35)
[2021-12-26] MEDS: HEPARIN SODIUM,PORCINE 5,000 UNITS/ML VIAL SQ SCH ×2 (08:35→17:27)
[2021-12-26] MEDS: POVIDONE-IODINE 10% 120 ML SOLUTION TP SCH (08:36)
[2021-12-26] MEDS: HYDROGEN PEROXIDE 473 ML SOLUTION TP SCH (08:39)
[2021-12-26 11:56] LABS: GLUCOMETER DEV NAME(LOC) 6N.2B; GLUCOSE,POINT OF CARE 154 MG/DL (70-110)
[2021-12-26 13:59] VITALS: BP 113/67
[2021-12-26 19:35] VITALS: BP 116/56
[2021-12-26 23:41] LABS: GLUCOMETER DEV NAME(LOC) 6N.1; GLUCOSE,POINT OF CARE 129 MG/DL (70-110)
[2021-12-26 23:41] LABS: GLUCOMETER DEV NAME(LOC) 6N.1; GLUCOSE,POINT OF CARE 133 MG/DL (70-110)
[2021-12-27] MEDS: HEPARIN SODIUM,PORCINE 5,000 UNITS/ML VIAL SQ SCH ×4 (00:59→23:24)
[2021-12-27] MEDS: ACETAMINOPHEN 325 MG TABLET PO PRN (01:00)
[2021-12-27 04:05] VITALS: BP 132/78
[2021-12-27] MEDS: INSULIN LISPRO 100 UNITS/ML SQ PRN ×3 (05:50→20:16)
[2021-12-27 06:05] LABS: BASOPHILS % (AUTO) 0.1 % (0.0-2.0); EOSINOPHILS % (AUTO) 0.5 % (1.0-6.0); HEMATOCRIT 41.7 % (41-53); HEMOGLOBIN 13.2 g/dL (13.5-17.5); LYMPHOCYTES # (AUTO) 2.7 K/uL (1.0-4.8); LYMPHOCYTES % (AUTO) 13.7 % (22.0-44.0); MEAN CORPUSCULAR HEMOGLOBIN 27.2 pg (26.0-34.0); MEAN CORPUSCULAR HGB CONC 31.6 G/dL (31.0-37.0); MEAN CORPUSCULAR VOLUME 86 fL (80-100); MONOCYTES # (AUTO) 1.4 K/uL (0.1-1.0); MONOCYTES % (AUTO) 7.2 % (2.0-9.0); NEUTROPHILS # (AUTO) 15.6 K/uL (1.8-7.7); NEUTROPHILS % (AUTO) 78.5 % (40.0-70.0); PLATELET COUNT (AUTO) 240 K/uL (150-450); RED BLOOD CELL COUNT(AUTO) 4.85 MIL/uL (4.50-5.90); RED CELL DISTRIBUTION WIDTH 15.8 % (11.5-14.5)
[2021-12-27 06:34] LABS: CALCIUM, TOTAL 10.2 mg/dL (8.8-10.5); CREATININE 1.54 mg/dL (0.60-1.30)
[2021-12-27 07:10] LABS: GLUCOMETER DEV NAME(LOC) 6N.2B; GLUCOSE,POINT OF CARE 152 MG/DL (70-110)
[2021-12-27 08:35] VITALS: BP 119/60
[2021-12-27] MEDS: FAMOTIDINE 20 MG TABLET PO SCH (08:59)
[2021-12-27] MEDS: LISINOPRIL 5 MG TABLET PO SCH (09:00)
[2021-12-27] MEDS: CLOPIDOGREL BISULFATE 75 MG TABLET PO SCH (09:00)
[2021-12-27] MEDS: ATORVASTATIN CALCIUM 40 MG TABLET PO SCH (09:00)
[2021-12-27] MEDS: ASPIRIN 81 MG CHEWABLE TABLET PO SCH (09:00)
[2021-12-27] MEDS: MULTIVITAMINS WITH MINERALS, THERAPEUTIC TABLET PO SCH (09:00)
[2021-12-27] MEDS: NYSTATIN 500,000 UNITS/5 ML SUSPENSION UDCUP PO SCH ×2 (09:01→20:17)
[2021-12-27] MEDS: SCOPOLAMINE HYDROBROMIDE 1 MG/72 HOUR PATCH TD SCH (09:01)
[2021-12-27] MEDS: HYDROGEN PEROXIDE 473 ML SOLUTION TP SCH (11:57)
[2021-12-27] MEDS: POVIDONE-IODINE 10% 120 ML SOLUTION TP SCH (11:58)
[2021-12-27 12:00] VITALS: BP 121/76
[2021-12-27 16:00] VITALS: BP 102/60
[2021-12-27 16:21] LABS: GLUCOMETER DEV NAME(LOC) 6N.2B; GLUCOSE,POINT OF CARE 131 MG/DL (70-110)
[2021-12-27] MEDS: DEXTROSE 5%-WATER 1,000 ML IV SCH (17:07)
[2021-12-27 18:46] LABS: GLUCOMETER DEV NAME(LOC) 6N.2B; GLUCOSE,POINT OF CARE 150 MG/DL (70-110)
[2021-12-27 21:17] VITALS: BP 135/56
[2021-12-27 21:41] LABS: GLUCOMETER DEV NAME(LOC) 6N.2B; GLUCOSE,POINT OF CARE 159 MG/DL (70-110)
[2021-12-28] MEDS: DEXTROSE 5%-WATER 1,000 ML IV SCH ×2 (04:08→23:18)
[2021-12-28 05:10] VITALS: BP 108/56
[2021-12-28] MEDS: INSULIN LISPRO 100 UNITS/ML SQ PRN ×2 (06:01→12:15)
[2021-12-28 06:57] LABS: BASOPHILS % (AUTO) 0.2 % (0.0-2.0); EOSINOPHILS % (AUTO) 0.4 % (1.0-6.0); HEMATOCRIT 42.2 % (41-53); HEMOGLOBIN 13.6 g/dL (13.5-17.5); LYMPHOCYTES % (AUTO) 11.5 % (22.0-44.0); MEAN CORPUSCULAR HEMOGLOBIN 27.7 pg (26.0-34.0); MEAN CORPUSCULAR HGB CONC 32.2 G/dL (31.0-37.0); MEAN CORPUSCULAR VOLUME 86 fL (80-100); MONOCYTES # (AUTO) 1.1 K/uL (0.1-1.0); MONOCYTES % (AUTO) 6.1 % (2.0-9.0); NEUTROPHILS # (AUTO) 14.6 K/uL (1.8-7.7); NEUTROPHILS % (AUTO) 81.8 % (40.0-70.0); PLATELET COUNT (AUTO) 228 K/uL (150-450); RED CELL DISTRIBUTION WIDTH 15.6 % (11.5-14.5)
[2021-12-28 07:02] LABS: GLUCOMETER DEV NAME(LOC) 6N.2B; GLUCOSE,POINT OF CARE 141 MG/DL (70-110)
[2021-12-28 07:20] LABS: CALCIUM, TOTAL 10.4 mg/dL (8.8-10.5); CREATININE 1.47 mg/dL (0.60-1.30); POTASSIUM 3.9 mmol/L (3.5-5.1)
[2021-12-28 07:51] VITALS: BP 105/50
[2021-12-28] MEDS: NYSTATIN 500,000 UNITS/5 ML SUSPENSION UDCUP PO SCH ×2 (09:07→20:05)
[2021-12-28] MEDS: HEPARIN SODIUM,PORCINE 5,000 UNITS/ML VIAL SQ SCH ×3 (09:07→23:18)
[2021-12-28] MEDS: FAMOTIDINE 20 MG TABLET PO SCH (09:08)
[2021-12-28] MEDS: CLOPIDOGREL BISULFATE 75 MG TABLET PO SCH (09:08)
[2021-12-28] MEDS: ASPIRIN 81 MG CHEWABLE TABLET PO SCH (09:08)
[2021-12-28] MEDS: ATORVASTATIN CALCIUM 40 MG TABLET PO SCH (09:08)
[2021-12-28] MEDS: LISINOPRIL 5 MG TABLET PO SCH (09:08)
[2021-12-28] MEDS: MULTIVITAMINS WITH MINERALS, THERAPEUTIC TABLET PO SCH (09:08)
[2021-12-28 12:50] VITALS: BP 120/63
[2021-12-28 15:31] LABS: GLUCOMETER DEV NAME(LOC) 6N.1; GLUCOSE,POINT OF CARE 147 MG/DL (70-110)
[2021-12-28 16:09] LABS: APPEARANCE,URINE CLEAR (CLEAR); BILIRUBIN,URINE NEGATIVE (NEGATIVE); GLUCOSE, URINE (UA) NEGATIVE (NEGATIVE); KETONES,URINE NEGATIVE (NEGATIVE); LEUKOCYTE ESTERASE ,URINE NEGATIVE (NEGATIVE); NITRATE,URINE NEGATIVE (NEGATIVE); OCCULT BLOOD,URINE TRACE (NEGATIVE); PROTEIN,URINE 30-70 mg/dL (NEGATIVE); SPECIFIC GRAVITIY, URINE 1.021 (1.003-1.030); UROBILINOGEN,URINE <=1.0 mg/dL (<=1.0)
[2021-12-28 16:19] LABS: BACTERIA,URINE None Seen /HPF (None Seen); SQUAMOUS EPITHELIAL CELL,UR Few /LPF (None Seen); WBC,URINE None Seen /HPF (0-5)
[2021-12-28] MEDS: POVIDONE-IODINE 10% 120 ML SOLUTION TP SCH (16:20)
[2021-12-28] MEDS: HYDROGEN PEROXIDE 473 ML SOLUTION TP SCH (16:20)
[2021-12-28 19:06] LABS: GLUCOMETER DEV NAME(LOC) 6N.2B; GLUCOSE,POINT OF CARE 150 MG/DL (70-110)
[2021-12-28 19:16] VITALS: BP 110/59
[2021-12-28 23:41] LABS: GLUCOMETER DEV NAME(LOC) 6N.1; GLUCOSE,POINT OF CARE 122 MG/DL (70-110)
[2021-12-29 04:12] VITALS: BP 128/67
[2021-12-29] MEDS: INSULIN LISPRO 100 UNITS/ML SQ PRN ×3 (05:19→17:14)
[2021-12-29 07:01] LABS: GLUCOMETER DEV NAME(LOC) 6N.2B; GLUCOSE,POINT OF CARE 161 MG/DL (70-110)
[2021-12-29 08:10] VITALS: BP 131/66
[2021-12-29] MEDS: HEPARIN SODIUM,PORCINE 5,000 UNITS/ML VIAL SQ SCH ×3 (08:10→23:38)
[2021-12-29] MEDS: NYSTATIN 500,000 UNITS/5 ML SUSPENSION UDCUP PO SCH ×2 (08:11→20:07)
[2021-12-29] MEDS: ASPIRIN 81 MG CHEWABLE TABLET PO SCH (08:11)
[2021-12-29] MEDS: ATORVASTATIN CALCIUM 40 MG TABLET PO SCH (08:11)
[2021-12-29] MEDS: FAMOTIDINE 20 MG TABLET PO SCH (08:12)
[2021-12-29] MEDS: POVIDONE-IODINE 10% 120 ML SOLUTION TP SCH (08:12)
[2021-12-29] MEDS: HYDROGEN PEROXIDE 473 ML SOLUTION TP SCH (08:12)
[2021-12-29] MEDS: CLOPIDOGREL BISULFATE 75 MG TABLET PO SCH (08:12)
[2021-12-29] MEDS: LISINOPRIL 5 MG TABLET PO SCH (08:12)
[2021-12-29] MEDS: MULTIVITAMINS WITH MINERALS, THERAPEUTIC TABLET PO SCH (08:12)
[2021-12-29] MEDS: DEXTROSE 5%-WATER 1,000 ML IV SCH (12:03)
[2021-12-29 12:31] LABS: GLUCOMETER DEV NAME(LOC) 6N.2B; GLUCOSE,POINT OF CARE 170 MG/DL (70-110)
[2021-12-29 12:49] VITALS: BP 108/56
[2021-12-29 16:00] VITALS: BP 132/53
[2021-12-29 20:40] VITALS: BP 121/64
[2021-12-29 21:41] LABS: GLUCOMETER DEV NAME(LOC) 6N.1; GLUCOSE,POINT OF CARE 145 MG/DL (70-110)
[2021-12-29 21:41] LABS: GLUCOMETER DEV NAME(LOC) 6N.1; GLUCOSE,POINT OF CARE 125 MG/DL (70-110)
[2021-12-30 04:57] VITALS: BP 111/53
[2021-12-30] MEDS: INSULIN LISPRO 100 UNITS/ML SQ PRN (06:01)
[2021-12-30 06:02] LABS: BASOPHILS % (AUTO) 0.1 % (0.0-2.0); EOSINOPHILS % (AUTO) 0.4 % (1.0-6.0); HEMATOCRIT 34.4 % (41-53); HEMOGLOBIN 11.2 g/dL (13.5-17.5); LYMPHOCYTES # (AUTO) 2.2 K/uL (1.0-4.8); MEAN CORPUSCULAR HEMOGLOBIN 27.3 pg (26.0-34.0); MEAN CORPUSCULAR HGB CONC 32.4 G/dL (31.0-37.0); MEAN CORPUSCULAR VOLUME 84 fL (80-100); MONOCYTES # (AUTO) 1.2 K/uL (0.1-1.0); MONOCYTES % (AUTO) 6.5 % (2.0-9.0); NEUTROPHILS # (AUTO) 14.6 K/uL (1.8-7.7); PLATELET COUNT (AUTO) 182 K/uL (150-450); RED BLOOD CELL COUNT(AUTO) 4.08 MIL/uL (4.50-5.90); RED CELL DISTRIBUTION WIDTH 15.7 % (11.5-14.5)
[2021-12-30 06:08] LABS: PROTHROMBIN TIME 11.1 SEC (9.4-11.6)
[2021-12-30] MEDS: DEXTROSE 5%-WATER 1,000 ML IV SCH (06:14)
[2021-12-30] MEDS: FAMOTIDINE 20 MG TABLET PO SCH (08:11)
[2021-12-30] MEDS: LISINOPRIL 5 MG TABLET PO SCH (08:11)
[2021-12-30] MEDS: ASPIRIN 81 MG CHEWABLE TABLET PO SCH (08:11)
[2021-12-30] MEDS: CLOPIDOGREL BISULFATE 75 MG TABLET PO SCH (08:11)
[2021-12-30] MEDS: MULTIVITAMINS WITH MINERALS, THERAPEUTIC TABLET PO SCH (08:11)
[2021-12-30] MEDS: ATORVASTATIN CALCIUM 40 MG TABLET PO SCH (08:11)
[2021-12-30] MEDS: POVIDONE-IODINE 10% 120 ML SOLUTION TP SCH (08:12)
[2021-12-30] MEDS: NYSTATIN 500,000 UNITS/5 ML SUSPENSION UDCUP PO SCH ×2 (08:12→21:11)
[2021-12-30] MEDS: HYDROGEN PEROXIDE 473 ML SOLUTION TP SCH (08:12)
[2021-12-30] MEDS: SCOPOLAMINE HYDROBROMIDE 1 MG/72 HOUR PATCH TD SCH (08:12)
[2021-12-30] MEDS: HEPARIN SODIUM,PORCINE 5,000 UNITS/ML VIAL SQ SCH ×3 (08:12→23:43)
[2021-12-30 08:15] VITALS: BP 113/67
[2021-12-30 13:17] LABS: GLUCOMETER DEV NAME(LOC) 6N.1; GLUCOSE,POINT OF CARE 111 MG/DL (70-110)
[2021-12-30 13:17] LABS: GLUCOMETER DEV NAME(LOC) 6N.1; GLUCOSE,POINT OF CARE 156 MG/DL (70-110)
[2021-12-30 14:06] VITALS: BP 119/69
[2021-12-30 18:46] LABS: GLUCOMETER DEV NAME(LOC) 6N.2B; GLUCOSE,POINT OF CARE 139 MG/DL (70-110)
[2021-12-30 20:15] VITALS: BP 125/54
[2021-12-30 22:12] LABS: GLUCOMETER DEV NAME(LOC) 6N.1; GLUCOSE,POINT OF CARE 133 MG/DL (70-110)
[2021-12-31 05:30] VITALS: BP 108/55
[2021-12-31 06:32] LABS: GLUCOMETER DEV NAME(LOC) 6N.1; GLUCOSE,POINT OF CARE 140 MG/DL (70-110)
[2021-12-31 07:21] VITALS: BP 115/72
[2021-12-31] MEDS: POVIDONE-IODINE 10% 120 ML SOLUTION TP SCH (09:00)
[2021-12-31] MEDS: LISINOPRIL 5 MG TABLET PO SCH (09:12)
[2021-12-31] MEDS: CLOPIDOGREL BISULFATE 75 MG TABLET PO SCH (09:12)
[2021-12-31] MEDS: FAMOTIDINE 20 MG TABLET PO SCH (09:14)
[2021-12-31] MEDS: MULTIVITAMINS WITH MINERALS, THERAPEUTIC TABLET PO SCH (09:14)
[2021-12-31] MEDS: HEPARIN SODIUM,PORCINE 5,000 UNITS/ML VIAL SQ SCH ×3 (09:14→23:51)
[2021-12-31] MEDS: ATORVASTATIN CALCIUM 40 MG TABLET PO SCH (09:14)
[2021-12-31] MEDS: NYSTATIN 500,000 UNITS/5 ML SUSPENSION UDCUP PO SCH ×2 (09:14→20:03)
[2021-12-31] MEDS: ASPIRIN 81 MG CHEWABLE TABLET PO SCH (09:14)
[2021-12-31] MEDS: HYDROGEN PEROXIDE 473 ML SOLUTION TP SCH (09:15)
[2021-12-31] MEDS: DEXTROSE 5%-WATER 1,000 ML IV SCH ×2 (09:18→23:51)
[2021-12-31] MEDS: INSULIN LISPRO 100 UNITS/ML SQ PRN ×2 (11:36→17:44)
[2021-12-31 13:12] LABS: GLUCOMETER DEV NAME(LOC) 6N.1; GLUCOSE,POINT OF CARE 154 MG/DL (70-110)
[2021-12-31 15:43] VITALS: BP 107/48
[2021-12-31 19:46] LABS: GLUCOMETER DEV NAME(LOC) 6N.1; GLUCOSE,POINT OF CARE 147 MG/DL (70-110)
[2021-12-31 19:55] VITALS: BP 108/57
[2021-12-31 23:21] LABS: GLUCOMETER DEV NAME(LOC) 6N.1; GLUCOSE,POINT OF CARE 140 MG/DL (70-110)
[2022-01-01 05:45] VITALS: BP 107/51
[2022-01-01 06:59] LABS: BASOPHILS % (AUTO) 0.2 % (0.0-2.0); EOSINOPHILS % (AUTO) 0.3 % (1.0-6.0); HEMATOCRIT 32.9 % (41-53); HEMOGLOBIN 10.9 g/dL (13.5-17.5); LYMPHOCYTES % (AUTO) 10.7 % (22.0-44.0); MEAN CORPUSCULAR HEMOGLOBIN 27.7 pg (26.0-34.0); MEAN CORPUSCULAR VOLUME 84 fL (80-100); MONOCYTES # (AUTO) 1.4 K/uL (0.1-1.0); MONOCYTES % (AUTO) 7.2 % (2.0-9.0); NEUTROPHILS # (AUTO) 15.3 K/uL (1.8-7.7); NEUTROPHILS % (AUTO) 81.6 % (40.0-70.0); PLATELET COUNT (AUTO) 187 K/uL (150-450); RED BLOOD CELL COUNT(AUTO) 3.92 MIL/uL (4.50-5.90); RED CELL DISTRIBUTION WIDTH 15.8 % (11.5-14.5)
[2022-01-01 07:48] VITALS: BP 119/70
[2022-01-01] MEDS: ATORVASTATIN CALCIUM 40 MG TABLET PO SCH (09:23)
[2022-01-01] MEDS: CLOPIDOGREL BISULFATE 75 MG TABLET PO SCH (09:24)
[2022-01-01] MEDS: MULTIVITAMINS WITH MINERALS, THERAPEUTIC TABLET PO SCH (09:24)
[2022-01-01] MEDS: FAMOTIDINE 20 MG TABLET PO SCH (09:24)
[2022-01-01] MEDS: ASPIRIN 81 MG CHEWABLE TABLET PO SCH (09:24)
[2022-01-01] MEDS: HEPARIN SODIUM,PORCINE 5,000 UNITS/ML VIAL SQ SCH ×3 (09:24→23:15)
[2022-01-01] MEDS: NYSTATIN 500,000 UNITS/5 ML SUSPENSION UDCUP PO SCH ×2 (09:24→20:30)
[2022-01-01] MEDS: HYDROGEN PEROXIDE 473 ML SOLUTION TP SCH (09:25)
[2022-01-01] MEDS: LISINOPRIL 5 MG TABLET PO SCH (09:25)
[2022-01-01] MEDS: POVIDONE-IODINE 10% 120 ML SOLUTION TP SCH (09:25)
[2022-01-01 09:31] LABS: GLUCOMETER DEV NAME(LOC) 6N.1; GLUCOSE,POINT OF CARE 138 MG/DL (70-110)
[2022-01-01] MEDS: ACETAMINOPHEN 325 MG TABLET PO PRN (09:36)
[2022-01-01] MEDS: INSULIN LISPRO 100 UNITS/ML SQ PRN ×2 (11:24→20:52)
[2022-01-01 12:31] LABS: GLUCOMETER DEV NAME(LOC) 6N.2B; GLUCOSE,POINT OF CARE 151 MG/DL (70-110)
[2022-01-01 15:30] VITALS: BP 119/56
[2022-01-01 19:55] VITALS: BP 108/54
[2022-01-01] MEDS ORDERED: WATER FOR IRRIGATION,STERILE 1000 ML SOLUTION BOTTLE ONE (22:55)
[2022-01-02 02:10] LABS: GLUCOMETER DEV NAME(LOC) 6N.2B; GLUCOSE,POINT OF CARE 122 MG/DL (70-110)
[2022-01-02 02:15] LABS: GLUCOMETER DEV NAME(LOC) 6N.2B; GLUCOSE,POINT OF CARE 149 MG/DL (70-110)
[2022-01-02 04:29] VITALS: BP 115/48
[2022-01-02] MEDS: DEXTROSE 5%-WATER 1,000 ML IV SCH ×2 (06:09→21:26)
[2022-01-02] MEDS: INSULIN LISPRO 100 UNITS/ML SQ PRN ×3 (06:11→17:51)
[2022-01-02 07:23] VITALS: BP 122/53
[2022-01-02] MEDS: HEPARIN SODIUM,PORCINE 5,000 UNITS/ML VIAL SQ SCH ×3 (08:41→23:45)
[2022-01-02] MEDS: ASPIRIN 81 MG CHEWABLE TABLET PO SCH (08:41)
[2022-01-02] MEDS: ATORVASTATIN CALCIUM 40 MG TABLET PO SCH (08:41)
[2022-01-02] MEDS: SCOPOLAMINE HYDROBROMIDE 1 MG/72 HOUR PATCH TD SCH (08:42)
[2022-01-02] MEDS: CLOPIDOGREL BISULFATE 75 MG TABLET PO SCH (08:42)
[2022-01-02] MEDS: LISINOPRIL 5 MG TABLET PO SCH (08:42)
[2022-01-02] MEDS: MULTIVITAMINS WITH MINERALS, THERAPEUTIC TABLET PO SCH (08:42)
[2022-01-02] MEDS: NYSTATIN 500,000 UNITS/5 ML SUSPENSION UDCUP PO SCH ×2 (08:42→20:02)
[2022-01-02] MEDS: FAMOTIDINE 20 MG TABLET PO SCH (08:42)
[2022-01-02] MEDS: HYDROGEN PEROXIDE 473 ML SOLUTION TP SCH (08:43)
[2022-01-02] MEDS: POVIDONE-IODINE 10% 120 ML SOLUTION TP SCH (08:43)
[2022-01-02 13:01] LABS: GLUCOMETER DEV NAME(LOC) 6N.1; GLUCOSE,POINT OF CARE 152 MG/DL (70-110)
[2022-01-02 13:01] LABS: GLUCOMETER DEV NAME(LOC) 6N.2B; GLUCOSE,POINT OF CARE 141 MG/DL (70-110)
[2022-01-02 15:48] VITALS: BP 117/52
[2022-01-02] MEDS: ACETAMINOPHEN 325 MG TABLET PO PRN (17:09)
[2022-01-02 19:01] LABS: GLUCOMETER DEV NAME(LOC) 6N.2B; GLUCOSE,POINT OF CARE 161 MG/DL (70-110)
[2022-01-02 20:09] VITALS: BP 106/58
[2022-01-02 22:46] LABS: GLUCOMETER DEV NAME(LOC) 6N.1; GLUCOSE,POINT OF CARE 126 MG/DL (70-110)
[2022-01-03 04:56] VITALS: BP 102/48
[2022-01-03 04:57] VITALS: BP 125/52
[2022-01-03 05:33] LABS: BASOPHILS % (AUTO) 0.2 % (0.0-2.0); EOSINOPHILS % (AUTO) 0.3 % (1.0-6.0); HEMOGLOBIN 10.2 g/dL (13.5-17.5); LYMPHOCYTES # (AUTO) 1.6 K/uL (1.0-4.8); LYMPHOCYTES % (AUTO) 9.7 % (22.0-44.0); MEAN CORPUSCULAR HEMOGLOBIN 27.4 pg (26.0-34.0); MEAN CORPUSCULAR VOLUME 83 fL (80-100); MONOCYTES # (AUTO) 1.1 K/uL (0.1-1.0); MONOCYTES % (AUTO) 6.6 % (2.0-9.0); NEUTROPHILS # (AUTO) 13.8 K/uL (1.8-7.7); NEUTROPHILS % (AUTO) 83.2 % (40.0-70.0); PLATELET COUNT (AUTO) 218 K/uL (150-450); RED BLOOD CELL COUNT(AUTO) 3.74 MIL/uL (4.50-5.90); RED CELL DISTRIBUTION WIDTH 15.4 % (11.5-14.5)
[2022-01-03 08:00] VITALS: BP 124/54
[2022-01-03] MEDS: LISINOPRIL 5 MG TABLET PO SCH (08:31)
[2022-01-03] MEDS: ATORVASTATIN CALCIUM 40 MG TABLET PO SCH (08:31)
[2022-01-03] MEDS: FAMOTIDINE 20 MG TABLET PO SCH (08:32)
[2022-01-03] MEDS: CLOPIDOGREL BISULFATE 75 MG TABLET PO SCH (08:32)
[2022-01-03] MEDS: MULTIVITAMINS WITH MINERALS, THERAPEUTIC TABLET PO SCH (08:32)
[2022-01-03] MEDS: ASPIRIN 81 MG CHEWABLE TABLET PO SCH (08:32)
[2022-01-03] MEDS: HEPARIN SODIUM,PORCINE 5,000 UNITS/ML VIAL SQ SCH ×2 (08:32→16:31)
[2022-01-03] MEDS: NYSTATIN 500,000 UNITS/5 ML SUSPENSION UDCUP PO SCH ×2 (09:00→20:34)
[2022-01-03 12:09] VITALS: BP 107/57
[2022-01-03 14:31] LABS: GLUCOMETER DEV NAME(LOC) 6N.1; GLUCOSE,POINT OF CARE 139 MG/DL (70-110)
[2022-01-03 14:31] LABS: GLUCOMETER DEV NAME(LOC) 6N.1; GLUCOSE,POINT OF CARE 139 MG/DL (70-110)
[2022-01-03 16:00] VITALS: BP 110/56
[2022-01-03] MEDS: HYDROGEN PEROXIDE 473 ML SOLUTION TP SCH (16:35)
[2022-01-03] MEDS: POVIDONE-IODINE 10% 120 ML SOLUTION TP SCH (16:35)
[2022-01-03] MEDS: INSULIN LISPRO 100 UNITS/ML SQ PRN (17:55)
[2022-01-03 18:51] LABS: GLUCOMETER DEV NAME(LOC) 6N.1; GLUCOSE,POINT OF CARE 137 MG/DL (70-110)
[2022-01-03] MEDS: DEXTROSE 5%-WATER 1,000 ML IV SCH (20:34)
[2022-01-03 20:43] VITALS: BP 113/58
[2022-01-04] MEDS: HEPARIN SODIUM,PORCINE 5,000 UNITS/ML VIAL SQ SCH ×4 (00:10→23:22)
[2022-01-04] MEDS: INSULIN LISPRO 100 UNITS/ML SQ PRN ×3 (00:55→18:05)
[2022-01-04] MEDS: DEXTROSE 5%-WATER 1,000 ML IV SCH ×2 (02:05→16:48)
[2022-01-04 03:06] LABS: GLUCOMETER DEV NAME(LOC) 6N.1; GLUCOSE,POINT OF CARE 155 MG/DL (70-110)
[2022-01-04 04:58] VITALS: BP 122/52
[2022-01-04 07:21] VITALS: BP 112/54
[2022-01-04 07:51] LABS: GLUCOMETER DEV NAME(LOC) 6N.1; GLUCOSE,POINT OF CARE 156 MG/DL (70-110)
[2022-01-04] MEDS: FAMOTIDINE 20 MG TABLET PO SCH (09:15)
[2022-01-04] MEDS: ATORVASTATIN CALCIUM 40 MG TABLET PO SCH (09:15)
[2022-01-04] MEDS: MULTIVITAMINS WITH MINERALS, THERAPEUTIC TABLET PO SCH (09:15)
[2022-01-04] MEDS: LISINOPRIL 5 MG TABLET PO SCH (09:15)
[2022-01-04] MEDS: CLOPIDOGREL BISULFATE 75 MG TABLET PO SCH (09:15)
[2022-01-04] MEDS: NYSTATIN 500,000 UNITS/5 ML SUSPENSION UDCUP PO SCH ×2 (09:15→20:27)
[2022-01-04] MEDS: ASPIRIN 81 MG CHEWABLE TABLET PO SCH (09:15)
[2022-01-04] MEDS: POVIDONE-IODINE 10% 120 ML SOLUTION TP SCH (09:16)
[2022-01-04] MEDS: HYDROGEN PEROXIDE 473 ML SOLUTION TP SCH (09:16)
[2022-01-04 12:42] LABS: GLUCOMETER DEV NAME(LOC) 6N.1; GLUCOSE,POINT OF CARE 137 MG/DL (70-110)
[2022-01-04 15:30] VITALS: BP 106/53
[2022-01-04 19:48] VITALS: BP 115/60
[2022-01-05 04:26] VITALS: BP 108/55
[2022-01-05] MEDS: INSULIN LISPRO 100 UNITS/ML SQ PRN (05:31)
[2022-01-05 05:56] LABS: GLUCOMETER DEV NAME(LOC) 6N.1; GLUCOSE,POINT OF CARE 141 MG/DL (70-110)
[2022-01-05 05:56] LABS: GLUCOMETER DEV NAME(LOC) 6N.1; GLUCOSE,POINT OF CARE 135 MG/DL (70-110)
[2022-01-05 05:56] LABS: GLUCOMETER DEV NAME(LOC) 6N.1; GLUCOSE,POINT OF CARE 139 MG/DL (70-110)
[2022-01-05 07:00] LABS: BASOPHILS % (AUTO) 0.3 % (0.0-2.0); EOSINOPHILS % (AUTO) 0.6 % (1.0-6.0); HEMOGLOBIN 9.1 g/dL (13.5-17.5); LYMPHOCYTES # (AUTO) 1.7 K/uL (1.0-4.8); LYMPHOCYTES % (AUTO) 11.3 % (22.0-44.0); MEAN CORPUSCULAR HEMOGLOBIN 27.2 pg (26.0-34.0); MEAN CORPUSCULAR HGB CONC 32.3 G/dL (31.0-37.0); MEAN CORPUSCULAR VOLUME 84 fL (80-100); MONOCYTES # (AUTO) 0.9 K/uL (0.1-1.0); MONOCYTES % (AUTO) 6.1 % (2.0-9.0); NEUTROPHILS # (AUTO) 12.5 K/uL (1.8-7.7); NEUTROPHILS % (AUTO) 81.7 % (40.0-70.0); PLATELET COUNT (AUTO) 265 K/uL (150-450); RED BLOOD CELL COUNT(AUTO) 3.33 MIL/uL (4.50-5.90); RED CELL DISTRIBUTION WIDTH 15.7 % (11.5-14.5)
[2022-01-05 07:56] VITALS: BP 123/69
[2022-01-05] MEDS: MULTIVITAMINS WITH MINERALS, THERAPEUTIC TABLET PO SCH (08:59)
[2022-01-05] MEDS: LISINOPRIL 5 MG TABLET PO SCH (08:59)
[2022-01-05] MEDS: FAMOTIDINE 20 MG TABLET PO SCH (08:59)
[2022-01-05] MEDS: ASPIRIN 81 MG CHEWABLE TABLET PO SCH (08:59)
[2022-01-05] MEDS: CLOPIDOGREL BISULFATE 75 MG TABLET PO SCH (08:59)
[2022-01-05] MEDS: ATORVASTATIN CALCIUM 40 MG TABLET PO SCH (08:59)
[2022-01-05] MEDS: NYSTATIN 500,000 UNITS/5 ML SUSPENSION UDCUP PO SCH ×2 (09:00→20:21)
[2022-01-05] MEDS: POVIDONE-IODINE 10% 120 ML SOLUTION TP SCH (09:01)
[2022-01-05] MEDS: SCOPOLAMINE HYDROBROMIDE 1 MG/72 HOUR PATCH TD SCH (09:01)
[2022-01-05] MEDS: HYDROGEN PEROXIDE 473 ML SOLUTION TP SCH (09:01)
[2022-01-05] MEDS: HEPARIN SODIUM,PORCINE 5,000 UNITS/ML VIAL SQ SCH (09:02)
[2022-01-05] MEDS: DEXTROSE 5%-WATER 1,000 ML IV SCH (10:50)
[2022-01-05 16:00] VITALS: BP 96/53
[2022-01-05 17:31] LABS: GLUCOMETER DEV NAME(LOC) 6N.1; GLUCOSE,POINT OF CARE 128 MG/DL (70-110)
[2022-01-05 19:30] VITALS: BP 115/52
[2022-01-05 20:06] LABS: GLUCOMETER DEV NAME(LOC) 6N.1; GLUCOSE,POINT OF CARE 117 MG/DL (70-110)
[2022-01-06 00:16] LABS: GLUCOMETER DEV NAME(LOC) 6N.2B; GLUCOSE,POINT OF CARE 126 MG/DL (70-110)
[2022-01-06 04:00] VITALS: BP 126/60
[2022-01-06] MEDS: INSULIN LISPRO 100 UNITS/ML SQ PRN ×3 (05:41→17:08)
[2022-01-06 07:11] LABS: GLUCOMETER DEV NAME(LOC) 6N.1; GLUCOSE,POINT OF CARE 145 MG/DL (70-110)
[2022-01-06 07:20] VITALS: BP 114/60
[2022-01-06] MEDS: MULTIVITAMINS WITH MINERALS, THERAPEUTIC TABLET PO SCH (08:50)
[2022-01-06] MEDS: ATORVASTATIN CALCIUM 40 MG TABLET PO SCH (08:50)
[2022-01-06] MEDS: LISINOPRIL 5 MG TABLET PO SCH (08:50)
[2022-01-06] MEDS: FAMOTIDINE 20 MG TABLET PO SCH (08:50)
[2022-01-06] MEDS: ASPIRIN 81 MG CHEWABLE TABLET PO SCH (08:50)
[2022-01-06] MEDS: NYSTATIN 500,000 UNITS/5 ML SUSPENSION UDCUP PO SCH ×2 (12:13→20:09)
[2022-01-06 13:21] LABS: GLUCOMETER DEV NAME(LOC) 6N.1; GLUCOSE,POINT OF CARE 147 MG/DL (70-110)
[2022-01-06] MEDS: DEXTROSE 5%-WATER 1,000 ML IV SCH (14:39)
[2022-01-06 15:24] VITALS: BP 117/63
[2022-01-06] MEDS: POVIDONE-IODINE 10% 120 ML SOLUTION TP SCH (17:07)
[2022-01-06] MEDS: HYDROGEN PEROXIDE 473 ML SOLUTION TP SCH (17:08)
[2022-01-06 19:05] LABS: GLUCOMETER DEV NAME(LOC) 6N.1; GLUCOSE,POINT OF CARE 135 MG/DL (70-110)
[2022-01-06 19:35] VITALS: BP 109/58
[2022-01-06] MEDS: ACETAMINOPHEN 325 MG TABLET PO PRN (20:09)
[2022-01-06 22:25] LABS: GLUCOMETER DEV NAME(LOC) 6N.2B; GLUCOSE,POINT OF CARE 139 MG/DL (70-110)
[2022-01-07 04:22] VITALS: BP 110/46
[2022-01-07] MEDS: DEXTROSE 5%-WATER 1,000 ML IV SCH (05:23)
[2022-01-07 07:11] LABS: BASOPHILS % (AUTO) 0.3 % (0.0-2.0); HEMATOCRIT 26.9 % (41-53); HEMOGLOBIN 8.9 g/dL (13.5-17.5); LYMPHOCYTES # (AUTO) 1.9 K/uL (1.0-4.8); LYMPHOCYTES % (AUTO) 11.5 % (22.0-44.0); MEAN CORPUSCULAR HEMOGLOBIN 27.6 pg (26.0-34.0); MEAN CORPUSCULAR HGB CONC 33.1 G/dL (31.0-37.0); MEAN CORPUSCULAR VOLUME 83 fL (80-100); MONOCYTES # (AUTO) 0.9 K/uL (0.1-1.0); MONOCYTES % (AUTO) 5.5 % (2.0-9.0); NEUTROPHILS # (AUTO) 13.2 K/uL (1.8-7.7); NEUTROPHILS % (AUTO) 81.7 % (40.0-70.0); PLATELET COUNT (AUTO) 323 K/uL (150-450); RED BLOOD CELL COUNT(AUTO) 3.23 MIL/uL (4.50-5.90)
[2022-01-07 07:39] LABS: ANION GAP 5 mmol/L (8-16); CARBON DIOXIDE 27 mmol/L (22-29); CHLORIDE 93 mmol/L (98-107); CREATININE 1.11 mg/dL (0.60-1.30); GLUCOSE,RANDOM 156 mg/dL (70-110); SODIUM SERUM 125 mmol/L (136-145); UREA NITROGEN, BLOOD 35 mg/dL (7-18)
[2022-01-07 07:43] LABS: GLOMERULAR FILTR. RATE CALC > 60 mL/min (>60)
[2022-01-07 07:48] VITALS: BP 120/51
[2022-01-07 07:56] LABS: GLUCOMETER DEV NAME(LOC) 6N.1; GLUCOSE,POINT OF CARE 128 MG/DL (70-110)
[2022-01-07] MEDS: FAMOTIDINE 20 MG TABLET PO SCH (09:29)
[2022-01-07] MEDS: ATORVASTATIN CALCIUM 40 MG TABLET PO SCH (09:29)
[2022-01-07] MEDS: LISINOPRIL 5 MG TABLET PO SCH (09:29)
[2022-01-07] MEDS: MULTIVITAMINS WITH MINERALS, THERAPEUTIC TABLET PO SCH (09:29)
[2022-01-07] MEDS: NYSTATIN 500,000 UNITS/5 ML SUSPENSION UDCUP PO SCH ×2 (09:29→22:48)
[2022-01-07] MEDS: ASPIRIN 81 MG CHEWABLE TABLET PO SCH (09:29)
[2022-01-07] MEDS: POVIDONE-IODINE 10% 120 ML SOLUTION TP SCH (09:32)
[2022-01-07] MEDS: HYDROGEN PEROXIDE 473 ML SOLUTION TP SCH (09:32)
[2022-01-07 16:50] VITALS: BP 103/58
[2022-01-07 18:16] LABS: GLUCOMETER DEV NAME(LOC) 6N.2B; GLUCOSE,POINT OF CARE 132 MG/DL (70-110)
[2022-01-07 18:17] LABS: GLUCOMETER DEV NAME(LOC) 6N.2B; GLUCOSE,POINT OF CARE 115 MG/DL (70-110)
[2022-01-07 20:18] VITALS: BP 102/50
[2022-01-07] MEDS ORDERED: HEPARIN SODIUM 25000 UNITS/D5W 250 ML IV PRN (20:30)
[2022-01-07] MEDS ORDERED: HEPARIN SODIUM,PORCINE 5,000 UNITS/ML VIAL IVP PRN ×2 (20:30)
[2022-01-07 20:48] LABS: BASOPHILS % (AUTO) 0.4 % (0.0-2.0); EOSINOPHILS % (AUTO) 0.4 % (1.0-6.0); HEMATOCRIT 27.2 % (41-53); HEMOGLOBIN 8.8 g/dL (13.5-17.5); LYMPHOCYTES # (AUTO) 1.7 K/uL (1.0-4.8); LYMPHOCYTES % (AUTO) 8.2 % (22.0-44.0); MEAN CORPUSCULAR HEMOGLOBIN 27.1 pg (26.0-34.0); MEAN CORPUSCULAR HGB CONC 32.5 G/dL (31.0-37.0); MEAN CORPUSCULAR VOLUME 83 fL (80-100); MONOCYTES # (AUTO) 1.2 K/uL (0.1-1.0); MONOCYTES % (AUTO) 5.6 % (2.0-9.0); NEUTROPHILS # (AUTO) 17.9 K/uL (1.8-7.7); NEUTROPHILS % (AUTO) 85.4 % (40.0-70.0); PLATELET COUNT (AUTO) 379 K/uL (150-450); RED BLOOD CELL COUNT(AUTO) 3.26 MIL/uL (4.50-5.90); RED CELL DISTRIBUTION WIDTH 16.1 % (11.5-14.5)
[2022-01-07 20:58] LABS: PROTHROMBIN TIME 10.8 SEC (9.4-11.6)
[2022-01-07 22:58] LABS: COVID AG,FIA SOURCE NASAL SWAB
[2022-01-08 01:31] LABS: GLUCOMETER DEV NAME(LOC) 6N.1; GLUCOSE,POINT OF CARE 135 MG/DL (70-110)
== END 2022-01-08 00:56 | disposition short-term general hospital (02) | DRG 65 ==
LOC: EMS 08:52 → 6S 18:20 → 5S 12-10 11:58 → 6S 12-18 19:00 → 6N 12-21 14:20
PROVIDERS: ADMIT Internal Medicine; ATTEND Internal Medicine
PROC: 3E033GC Introduction of Other Therapeutic Substance into Peripheral Vein, Percutaneous Approach (ICD-10-PCS; 2021-12-20)
PROC: 0DH63UZ Insertion of Feeding Device into Stomach, Percutaneous Approach (ICD-10-PCS; principal; 2021-12-20 12:00)
DX: I63.9 Cerebral infarction, unspecified (principal); B37.0 Candidal stomatitis; E87.0 Hyperosmolality and hypernatremia; I50.22 Chronic systolic (congestive) heart failure; N17.9 Acute kidney failure, unspecified; E11.52 Type 2 diabetes mellitus with diabetic peripheral angiopathy with gangrene; E46 Unspecified protein-calorie malnutrition; R65.10 Systemic inflammatory response syndrome (SIRS) of non-infectious origin without acute organ dysfunction; E87.1 Hypo-osmolality and hyponatremia; Z68.1 Body mass index [BMI] 19.9 or less, adult; R26.2 Difficulty in walking, not elsewhere classified; S80.12XA Contusion of left lower leg, initial encounter; X58.XXXA Exposure to other specified factors, initial encounter; R13.10 Dysphagia, unspecified; Z20.822 Contact with and (suspected) exposure to COVID-19; R91.1 Solitary pulmonary nodule; Z87.891 Personal history of nicotine dependence; Z83.3 Family history of diabetes mellitus; Z79.899 Other long term (current) drug therapy; Z79.82 Long term (current) use of aspirin; Z79.02 Long term (current) use of antithrombotics/antiplatelets; Z75.1 Person awaiting admission to adequate facility elsewhere; Y93.89 Activity, other specified; Y92.89 Other specified places as the place of occurrence of the external cause; Y99.8 Other external cause status; I69.320 Aphasia following cerebral infarction
CPT/HCPCS: 70450; 70496; 70498; 70551; 71045; 73521; 73700; 74230; 80048; 80053; 80061; 81001; 82962; 83605; 83735; 84100; 84132; 84484; 85025; 85610; 85730; 87081; 87086; 92507; 92526; 92610; 92611; 93005; 93306; 93308; 93925; 97110; 97112; 97162; 97167; 97530; 97535; 99285; G0238; J0690; J1644; J2704; J3490; J7040; J7050; J7060; Q9967; 36415-L1; 36415-TC; Z7610